=== PATIENT | male | born 1950 | race Caucasian/White ===

== ENCOUNTER 2018-11-28 11:17 | Inpatient (IN) | payer MEDICARE, OTHER ==
[~2018-11-28] VITALS: Ht 180.3 cm; Wt 107.6 kg
[2018-12-24] VITALS (11 sets, daily range): BP systolic 135–155; BP diastolic 72–85; PULSE 59–77; TEMP 97.3–98.2
[2018-12-24] MEDS ORDERED: MICARDIS20 MG PO (11:23)
--- NOTE | 2018-12-24 11:28 | NUR ---
The patient ambulated back to [address] independently using a steady gait and appeared to tolerate the activity well. Vital signs obtained. Consent signed. 18G IV started in left wrist with one stick, LR infusing without difficulty. Blood obtained from IV start from re-type per lab protocol. Heart murmur present. Lungs clear. Bowel sounds audible. Call light is within reach. brought back to be at his bedside. Will continue to monitor the patient.
--- NOTE | 2018-12-24 17:30 | NUR ---
Patient alert, drowsy. Answers questions appropriately. See assessment. ERAS protocol reviewed with family. Abdomen soft, non tender, non distended. Bowel sounds hypoactive x4 quads. Lap incisions with edges well approximated, no redness or drainage noted. Miles drain site with dressing CDI, serosanguinous drainage noted. Heimlich valve to right upper chest in place with dressing CDI. Lungs clear in all lobes. Post op exercises reviewed with patient. No c/o pain or discomfort.
--- NOTE | 2018-12-24 18:07 | NUR ---
ERAS protocol reviewed with patient and family. Verbalized understanding.
[2018-12-25] VITALS (7 sets, daily range): BP systolic 112–145; BP diastolic 55–75; PULSE 65–94; TEMP 97.6–99.4
--- NOTE | 2018-12-25 01:54 | NUR ---
patient doing well throughout the night. c/o moderate to severe pain rating it a 9/10 to his abd, however patient denies need for pain medication. patient teaching done regarding pain control, patient continues to deny additional need for pain medication. x6 lap sites to abd CDI and open to air. R drain site is CDI with guaze and tape. heimlich valve site is CDI with guaze and tape. hakan drain has bloody drainage. [place]o output was low even after bolus. dr alva called, lasix given per doctors order. [place] output significantly increased afterwards and became more yellow and less bloody. IV to L wrist is patent and infusing. patient is still very sleepy and resting. will continue to monitor. no further needs at this time.
[2018-12-25 07:10] LABS: BASO % 0.2 % (0.0-2.0); EOS % 0.1 % (0-4.0); GRAN # 10.3 (1.4-6.5); GRAN % 85.2 % (42.2-75.2); HEMATOCRIT 40.9 % (42.0-52.0); HEMOGLOBIN 13.9 g/dl (13.5-18.0); LYMPH # 0.9 (1.2-3.4); LYMPH % 7.3 % (20.0-51.0); MEAN CELL VOLUME 88 fl (80.0-100.0); MEAN CORPUSCULAR HEMOGLOBIN 30 pg (27.0-31.0); MEAN CORPUSCULAR HGB CONC 34 g/dl (33.0-37.0); MEAN PLATELET VOLUME 11.6 fl (7.4-10.4); MONO # 0.8 (0.1-0.6); MONO % 6.8 % (1.7-9.3); PLATELET COUNT 190 K/mm3 (130-400); RED BLOOD COUNT 4.65 M/mm3 (4.20-5.60); REDCELL DISTRIBUTION WIDTH-CV 12.6 % (11.5-14.5)
[2018-12-25 07:27] LABS: CALCIUM 8.8 mg/dL (8.4-10.2); CREATININE, serum 1.55 (0.66-1.25); POTASSIUM 4.5 mmol/L (3.4-5.0)
--- NOTE | 2018-12-25 09:00 | NUR ---
Heimlich valve on chest with dressing CDI. Pt has abdominal incisions x 6 that remain CDI. R ABD dressing for JP1 CDI. Has an IV LR in R hand infusing @ 75ml q hr shows no signs of edema or reddening. On O2 @ 2L NC. Pt c/o R & L abd quadrant pain. He rates his pain 3/10. Denies need for pain medication.
--- NOTE | 2018-12-25 10:48 | NUR ---
SW met with the patient to discuss discharge plan. The patient lives in [place] with his , Amanda (ph#[phone]). He reports independence with ADLs and has a cane. The patient's PCP is Dr. Rizzo at [facility] and he also receives his medications there. He reports no difficulties obtaining his meds. The patient does not have advanced directives and he was not interested in completing them at this time. The patient plans to return home with his upon discharge. No additional needs at this time.
--- NOTE | 2018-12-25 11:28 | NUR ---
Reported off to JACQUELYN López
--- NOTE | 2018-12-25 12:38 | NUR ---
First visit from the vertica architect. No needs right now.
--- NOTE | 2018-12-25 16:22 | NUR ---
Patient resting in bed, sat up in chair today, but reports the chair was uncomfortable for his back. He has ambulated the halls per ERAS protocol. Pain managed without narcotic use. Mariel MAR per orders, He is yet to void. Da segundo to bulb suction. SCDs Ble. Iv to INt. He reports minimal flatus, denies nausea. Diet to progress Slowly. Will monitor
--- NOTE | 2018-12-25 19:16 | NUR ---
Patient resting in bed. He tolerated general diet for dinner. Ambulated halls again & did well. He was able to void, urine concentrated. NICKOLAS drain to compression. Scds ble.
--- NOTE | 2018-12-25 20:00 | NUR ---
SUPERVISED GAIT TO BATHROOM, STEADY ON HIS FEET. VOIDS 300CC OF YELLOW URINE WITHOUT PROBLEM. EMPTIED NICKOLAS DRAIN AT THIS TIME FOR 40CC OF SEROSANGUINOUS FLUID. PATIENT DENIES PAIN. ROBOTIC SITES TO ABDOMEN GLUED AND DRY, NICKOLAS DRAIN SITE WITH DRAIN SPONGE. PATIENT BACK TO BED WITHOUT PROBLEM.
[2018-12-26 04:44] VITALS: BP 124/64; PULSE 86; TEMP 98.9
--- NOTE | 2018-12-26 05:35 | NUR ---
NICKOLAS drainage collected and sent to lab. Patient denies pain at this time.
--- NOTE | 2018-12-26 07:34 | NUR ---
REPORT FROM BERTO VALLADARES.
[2018-12-26 07:49] VITALS: BP 105/83; PULSE 84; TEMP 98.6
--- NOTE | 2018-12-26 08:31 | NUR ---
AGREE WITH ASSESSMENTS FROM ALEXANDRA RYDER STUDENT THIS SHIFT.
--- NOTE | 2018-12-26 09:02 | NUR ---
Patient resting in bed at this time. Patient is alert and oriented, answers questions appropriately. Lap sites are well approximated, dressing around NICKOLAS drain is CDI. Patient denies SOA at rest, states he still has some during exertion. Upon assessment, left lung is CTA in all chairez, Right lung has some expiratory wheezes and sounds diminished in right lower lobe. When patient gets up to bathroom with SBA patient has audible inspritory and expiratory wheezes and upon returning to bed is visibly short of air, but recovers quickly. SpO2 is 94% on room air. Patient denies pain or further needs at this time, call light within reach.
--- NOTE | 2018-12-26 11:36 | NUR ---
DISCHARGE INSTRUCTIONS PROVIDED TO PATIENT AND SPOUSE. QUESTIONS SOLICITED AND ANSWERED. PT TAKEN OUT PER WHEEL CHAIR BY STAFF.
== END 2018-12-26 11:37 | disposition home or self-care (01) | DRG 657 ==
LOC: INPTSU 12-24 10:20 → SURG 12-24 12:30
PROVIDERS: ADMIT Urology
PROC: 0TB04ZZ Excision of Right Kidney, Percutaneous Endoscopic Approach (ICD-10-PCS; 2018-12-24)
PROC: 8E0W4CZ Robotic Assisted Procedure of Trunk Region, Percutaneous Endoscopic Approach (ICD-10-PCS; 2018-12-24)
PROC: 0W9930Z Drainage of Right Pleural Cavity with Drainage Device, Percutaneous Approach (ICD-10-PCS; principal; 2018-12-24 12:30)
DX: C64.2 Malignant neoplasm of left kidney, except renal pelvis (principal); J95.811 Postprocedural pneumothorax; Y83.8 Other surgical procedures as the cause of abnormal reaction of the patient, or of later complication, without mention of misadventure at the time of the procedure; I10 Essential (primary) hypertension; F17.210 Nicotine dependence, cigarettes, uncomplicated
CPT/HCPCS: A4314; A9284; J0330; J1100; J1940; J2250; J2405; J2704; J2710; J2795; J3010; J7040; J7120